=== PATIENT | male | born 1945 | race Caucasian/White ===

== ENCOUNTER 2020-05-15 09:18 | Emergency (ER) | payer OTHER | END 2020-05-15 10:37 | disposition home or self-care (01) | LOC: FER 09:18 | DX: S83.206A Unspecified tear of unspecified meniscus, current injury, right knee, initial encounter (principal); X50.1XXA Overexertion from prolonged static or awkward postures, initial encounter; Y92.39 Other specified sports and athletic area as the place of occurrence of the external cause | CPT/HCPCS: 73564 ==

== ENCOUNTER 2021-05-09 12:49 | Inpatient (IN) | payer OTHER ==
[~2021-05-09] VITALS: Ht 180.3 cm; Wt 91.7 kg
[2021-05-09 13:43] LABS: BUN/CREAT RATIO (CALC) 23.3 RATIO; CREATININE 1.16 mg/dL (0.67-1.17)
[2021-05-09 14:15] LABS: BASOPHIL 0.1 % (0-2); EOSINOPHIL 0 % (0-7); HCT 41.5 % (42.0-52.0); HGB 14.2 g/dl (13.2-18.0); LYMPHOCYTE 2.4 % (15-48); MCH 29.6 pg (25.0-31.0); MCHC 34.2 g/dL (32.0-36.0); MCV 86.6 fL (78.0-100.0); MONOCYTE 6.6 % (0-12); MPV 11.1 fL (6.0-9.5); NEUTROPHIL 90.4 % (41-80); NRBC 0; PLT 239 K/uL (150-400); RBC 4.79 M/uL (4.70-6.00); RDW 12.4 % (11.5-14.0); WBC 15.5 K/uL (4.0-10.5)
[2021-05-09 16:13] LABS: BILIRUBIN NEGATIVE (NEGATIVE); BLOOD NEGATIVE Ery/uL (NEGATIVE); CLARITY CLEAR (CLEAR); COLOR YELLOW (YELLOW); GLUCOSE (U) NORMAL (NORMAL); LEUKOCYTES NEGATIVE Leu/uL (NEGATIVE); NITRITE NEGATIVE (NEGATIVE); PROTEIN TRACE (LOW) mg/dL (NEGATIVE); SPECIFIC GRAVITY 1.015 (1.001-1.030)
[2021-05-10 04:51] LABS: BASOPHIL 0.1 % (0-2); EOSINOPHIL 0 % (0-7); HCT 39.5 % (42.0-52.0); HGB 13.3 g/dl (13.2-18.0); LYMPHOCYTE 2.8 % (15-48); MCH 29.7 pg (25.0-31.0); MCHC 33.7 g/dL (32.0-36.0); MCV 88.2 fL (78.0-100.0); MONOCYTE 5.2 % (0-12); MPV 10.3 fL (6.0-9.5); NEUTROPHIL 91.1 % (41-80); NRBC 0; PLT 242 K/uL (150-400); RBC 4.48 M/uL (4.70-6.00); RDW 12.5 % (11.5-14.0); WBC 14.9 K/uL (4.0-10.5)
[2021-05-10 05:19] LABS: BUN/CREAT RATIO (CALC) 26.7 RATIO; CREATININE 0.9 mg/dL (0.67-1.17); POTASSIUM 4.2 mmol/L (3.5-5.1)
[2021-05-11 06:48] LABS: BASOPHIL 0.3 % (0-2); EOSINOPHIL 0.1 % (0-7); HCT 39.4 % (42.0-52.0); HGB 13.1 g/dl (13.2-18.0); MCH 29.8 pg (25.0-31.0); MCHC 33.2 g/dL (32.0-36.0); MCV 89.7 fL (78.0-100.0); MONOCYTE 8.2 % (0-12); MPV 9.9 fL (6.0-9.5); NEUTROPHIL 77.6 % (41-80); NRBC 0; PLT 245 K/uL (150-400); RBC 4.39 M/uL (4.70-6.00); RDW 12.6 % (11.5-14.0); WBC 8.7 K/uL (4.0-10.5)
[2021-05-11 07:01] LABS: C-REACTIVE PROTEIN 11.5 mg/dL (<=0.90); CREATININE 1.06 mg/dL (0.67-1.17); POTASSIUM 4.1 mmol/L (3.5-5.1)
[2021-05-11 07:42] LABS: LYMPHOCYTE 11.1 % (15-48)
[2021-05-13 06:23] LABS: BASOPHIL 0.2 % (0-2); EOSINOPHIL 0 % (0-7); HCT 40.4 % (42.0-52.0); HGB 13.9 g/dl (13.2-18.0); LYMPHOCYTE 4.2 % (15-48); MCH 29.9 pg (25.0-31.0); MCHC 34.4 g/dL (32.0-36.0); MCV 86.9 fL (78.0-100.0); MONOCYTE 3.1 % (0-12); MPV 9.8 fL (6.0-9.5); NEUTROPHIL 91.1 % (41-80); NRBC 0; PLT 295 K/uL (150-400); RBC 4.65 M/uL (4.70-6.00); RDW 12.4 % (11.5-14.0)
[2021-05-13 06:27] LABS: WBC 14.7 K/uL (4.0-10.5)
[2021-05-13 06:50] LABS: BUN/CREAT RATIO (CALC) 30.1 RATIO; CREATININE 0.83 mg/dL (0.67-1.17); POTASSIUM 4.3 mmol/L (3.5-5.1)
[2021-05-14 06:07] LABS: BASOPHIL 0.1 % (0-2); EOSINOPHIL 0 % (0-7); HCT 39.3 % (42.0-52.0); HGB 13.4 g/dl (13.2-18.0); LYMPHOCYTE 3.3 % (15-48); MCH 29.6 pg (25.0-31.0); MCHC 34.1 g/dL (32.0-36.0); MCV 86.9 fL (78.0-100.0); MONOCYTE 3.2 % (0-12); NRBC 0; PLT 318 K/uL (150-400); RBC 4.52 M/uL (4.70-6.00); RDW 12.3 % (11.5-14.0); WBC 13.8 K/uL (4.0-10.5)
[2021-05-14 06:45] LABS: BUN/CREAT RATIO (CALC) 30.6 RATIO; CREATININE 0.85 mg/dL (0.67-1.17); POTASSIUM 4.3 mmol/L (3.5-5.1)
--- NOTE | 2021-05-14 13:34 | NUR ---
05/14/21 Per telephone conversation with Ms. Sosa. Mr. Sosa lives at home with his spouse. He was independent in the home and community prior to admission. He went to the gym daily. - Ms. Sosa n[facility] if 02 is needed at discharge.
[2021-05-15 12:41] LABS: BILIRUBIN NEGATIVE (NEGATIVE); BLOOD NEGATIVE Ery/uL (NEGATIVE); CLARITY CLEAR (CLEAR); COLOR YELLOW (YELLOW); GLUCOSE (U) NORMAL (NORMAL); LEUKOCYTES NEGATIVE Leu/uL (NEGATIVE); NITRITE NEGATIVE (NEGATIVE); PROTEIN NEGATIVE (NEGATIVE); SPECIFIC GRAVITY >=1.030 (1.001-1.030); UROBILINOGEN 0.2 mg/dL (0.2-1.0)
[2021-05-16 06:08] LABS: BUN/CREAT RATIO (CALC) 25.9 RATIO; C-REACTIVE PROTEIN 1.7 mg/dL (<=0.90); CREATININE 0.81 mg/dL (0.67-1.17); POTASSIUM 4.5 mmol/L (3.5-5.1)
[2021-05-16 06:11] LABS: BASOPHIL 0.3 % (0-2); EOSINOPHIL 0 % (0-7); HCT 39.9 % (42.0-52.0); HGB 13.5 g/dl (13.2-18.0); LYMPHOCYTE 3.4 % (15-48); MCH 29.4 pg (25.0-31.0); MCHC 33.8 g/dL (32.0-36.0); MCV 86.9 fL (78.0-100.0); MONOCYTE 2.9 % (0-12); MPV 9.9 fL (6.0-9.5); NEUTROPHIL 88.8 % (41-80); NRBC 0; PLT 319 K/uL (150-400); RBC 4.59 M/uL (4.70-6.00); RDW 12.2 % (11.5-14.0)
--- NOTE | 2021-05-18 04:33 | NUR ---
WENT INTO PATIENTS ROOM AT 4:12 TO CHECK ON PATIENTS MONITOR SINCE IT HAS GONE OFF LINE. FOUND THE PATIENT SITTING IN BED COMPLETELY A/O X 4, IN NO DISTRESS, WITH HIS O2 OFF, HIS BATTERY OUT OF HIS HEART MONITOR, AND HIS O2 READER UNPLUGGED. PT HAS REQUESTED THAT HE NOT BE DISTURBED BETWEEN THE HOURS OF 10PM & 4AM. PT EXPRESSED CONCERN THAT HE HAS BEEN TRYING TO USE THE CALL BUTTON TO GET SOMEONE TO COME EMPTY HIS BEDSIDE COMMODE FOR 40 MINUTES WITH NO RESPONSE. I CHECKED THE PATIENTS CALL BUTTN AND IT WAS UNPLUGGED FROM THE WALL. IT WAS NOT ALARMING. I PLUGGED IT IN AND CONFIRMED THAT IT WORKED. EMPTIED THE PATIENTS BSC AND THE PATIENT HAD NOT ADDITIONAL NEEDS.
[2021-05-18] MEDS ORDERED: DEXAMETHASONE 2M2 MG PO (11:38)
--- NOTE | 2021-05-18 16:52 | NUR ---
05/18/21 A referral was made to [facility] for 02 at 5 L [facility].
== END 2021-05-18 17:10 | disposition home or self-care (01) | DRG 177 ==
LOC: FER 12:49 → FMS 15:11 → FTCU 05-11 10:02
PROVIDERS: Family Medicine; Nurse Practitioner Family; ADMIT Allergy & Immunology Allergy
PROC: XW0DXM6 Introduction of Baricitinib into Mouth and Pharynx, External Approach, New Technology Group 6 (ICD-10-PCS; 2021-05-10)
PROC: 5A0945A Assistance with Respiratory Ventilation, 24-96 Consecutive Hours, High Flow/Velocity Cannula (ICD-10-PCS; 2021-05-10)
PROC: XW033E5 Introduction of Remdesivir Anti-infective into Peripheral Vein, Percutaneous Approach, New Technology Group 5 (ICD-10-PCS; principal; 2021-05-11)
DX: U07.1 COVID-19 (principal); J12.82 Pneumonia due to coronavirus disease 2019; J96.01 Acute respiratory failure with hypoxia; J15.9 Unspecified bacterial pneumonia; G47.00 Insomnia, unspecified; K59.01 Slow transit constipation; R39.15 Urgency of urination; Z98.890 Other specified postprocedural states; Z86.19 Personal history of other infectious and parasitic diseases; Z79.01 Long term (current) use of anticoagulants; Z79.899 Other long term (current) drug therapy
CPT/HCPCS: 36415; 36600; 71045; 71275; 80048; 81003; 82728; 82803; 84145; 85025; 85379; 86140; 94010; 94640; 94664; C9399; J0456; J0696; J1100; J1650; J3480; J7030; J7050; J8540; Q9967; U0002